=== PATIENT | female | born 1980 | race African-American/Black ===

== ENCOUNTER 2019-02-01 20:52 | Emergency (ER) | payer SELFPAY ==
--- NOTE | 2019-02-01 22:11 | EDM.PDOC ---
ED HPI GENERAL MEDICAL PROBLEM - General Chief Complaint: Skin Complaint Stated Complaint: POSSIBLE BUG BITE Time Seen by Provider: 02/01/19 22:01 - History of Present Illness INITIAL COMMENTS - FREE TEXT/NARRATIVE: HISTORY AND PHYSICAL: History of present illness: The patient is a 38-year-old female who presents with complaints of redness and pain to the inner aspect of her right lower leg. She is not sure if she rubs the area or was bitten by something but she doesn't recall any trauma. She has no other skin complaints. She has no systemic complaints of fever chills nausea vomiting and denies . The patient says the area is burning and discomforting and a little bit itchy. She's noticed that the swelling and redness starting to extend downward. She has no numbness or tingling to her right foot. Review of systems: As per history of present illness and below otherwise all systems reviewed and negative. Past medical history: As per history of present illness and as reviewed below otherwise noncontributory. Surgical history: As per history of present illness and as reviewed below otherwise noncontributory. Social history: No reported history of drug or alcohol abuse. Family history: As per history of present illness and as reviewed below otherwise noncontributory. Physical exam: HEENT: Atraumatic, normocephalic, negative for conjunctival pallor or scleral icterus, mucous membranes moist, throat clear, neck supple, nontender, trachea midline. Lungs: Clear to auscultation, breath sounds equal bilaterally, chest nontender. Heart: S1S2, regular rate and rhythm no overt murmurs Abdomen: Soft, nondistended, nontender. NABS Pelvis: Deferred Genitourinary: Deferred. Rectal: Deferred. Extremities: Atraumatic, negative for cords or calf pain. At the lower medial aspect of the right lower leg there is a well-defined area of erythema and warmth measuring 7 x 8 cm. There is no skin break or punctum and there is no fluctuance. There is some edema extending distally but does not affect the ankle or foot. The area of erythema and warmth is not circumferential and there is no streaking up the leg nor any pain proximally. Neurovascular is intact distally and all other extremities have full range of motion without defects or deficits Neurovascular unremarkable. Neuro: Awake, alert, oriented. Cranial nerves II through XII unremarkable. Cerebellum unremarkable. Motor and sensory unremarkable throughout. Exam nonfocal. Diagnostics: [] Therapeutics: [] Impression: Cellulitis of right leg Definitive disposition and diagnosis as appropriate pending reevaluation and review of above. Right Lower Leg Pain Score (Numeric/FACES): 8 - Related Data Allergies Allergy/AdvReac Type Severity Reaction Status Date / Time No Known Allergies Allergy Verified 02/01/19 22:00 Home Meds: Home Meds Lisinopril [Prinivil] 10 mg PO DAILY 02/01/19 [History] Metoprolol Succinate [Toprol XL] 25 mg PO DAILY 02/01/19 [History] amLODIPine Besylate [Norvasc] 10 mg PO DAILY 02/01/19 [History] cloNIDine HCl [Catapres] 0.1 mg PO BID 02/01/19 [History] ED ROS GENERAL - Review of Systems Review Of Systems: ROS reveals no pertinent complaints other than HPI. ED EXAM, SKIN/RASH Exam: See Below (see dictation) Course - Vital Signs Last Recorded V/S: Last Vital Signs Temp 36.7 C 02/01/19 21:56 Pulse 94 02/01/19 21:56 Resp BP 166/105 H 02/01/19 21:56 Pulse Ox 99 02/01/19 21:56 Departure - Departure Time of Disposition: 22:10 Disposition: Home, Self-Care 01 Condition: Good Clinical Impression: Cellulitis Qualifiers: Site of cellulitis: extremity Site of cellulitis of extremity: lower extremity Laterality: right Qualified Code(s): L03.115 - Cellulitis of right lower limb - Discharge Information Referrals: PCP,None [Primary Care Provider] - Additional Instructions: The following information is given to patients seen in the emergency department who are being discharged to home. This information is to outline your options for follow-up care. We provide all patients seen in our emergency department with a follow-up referral. The need for follow-up, as well as the timing and circumstances, are variable depending upon the specifics of your emergency department visit. If you don't have a primary care physician on staff, we will provide you with a referral. We always advise you to contact your personal physician following an emergency department visit to inform them of the circumstance of the visit and for follow-up with them and/or the need for any referrals to a consulting specialist. The emergency department will also refer you to a specialist when appropriate. This referral assures that you have the opportunity for followup care with a specialist. All of these measure are taken in an effort to provide you with optimal care, which includes your followup. Under all circumstances we always encourage you to contact your private physician who remains a resource for coordinating your care. When calling for followup care, please make the office aware that this follow-up is from your recent emergency room visit. If for any reason you are refused follow-up, please contact the [facility] emergency department at and ask to speak to the emergency department charge nurse. [facility] Primary care- Internal Medicine and Family [address] [address] Try to elevate her right leg as much as possible and take antibiotics, Bactrim, as given to you from [facility]. Use [id number] Motrin or ibuprofen for inflammation and pain. Please call and schedule a follow-up appointment in the clinic and return to ER as needed and as discussed. The area may expand somewhat and then should start shrinking in size. Please monitor this area as we discussed.
== END 2019-02-01 22:14 | disposition home or self-care (01) ==
LOC: MW.ED 20:52
DX: L03.115 Cellulitis of right lower limb (principal); Z79.899 Other long term (current) drug therapy
CPT/HCPCS: 99282